=== PATIENT | male | born 1955 | race Caucasian/White ===

== ENCOUNTER 2016-06-27 08:53 | Inpatient (IN) | payer MEDICARE, OTHER ==
[~2016-06-27] VITALS: Ht 175.3 cm; Wt 122.0 kg
[2016-06-27] MEDS ORDERED: DILTIAZEM HCL 25 MG IV ONE (09:08)
[2016-06-27 09:26] LABS: BASOPHILS # (AUTO) 0.3 /CMM (0.0-0.2); BASOPHILS % (AUTO) 2.7 % (0.0-2.0); DIFF TOTAL % 100 %; EOSINOPHILS # (AUTO) 0.7 /CMM (0.0-0.7); EOSINOPHILS % (AUTO) 5.4 % (0.0-6.0); HEMATOCRIT 49 % (39-51); HEMOGLOBIN 16.8 g/dL (13.5-17.5); LYMPHOCYTES # (AUTO) 3.7 /CMM (0.8-4.8); LYMPHOCYTES % (AUTO) 28.4 % (20.0-44.0); MEAN CORPUSCULAR HEMOGLOBIN 30 PG (26.0-33.0); MEAN CORPUSCULAR HGB CONC 35 g/dl (31.0-36.0); MEAN CORPUSCULAR VOLUME 87 fL (80-96); MONOCYTES # (AUTO) 0.8 /CMM (0.1-1.30); MONOCYTES % (AUTO) 6.3 % (2.0-12.0); NEUTROPHILS # (AUTO) 7.4 /CMM (1.8-8.9); NEUTROPHILS % (AUTO) 57.2 % (43.0-81.0); PLATELET COUNT (AUTO) 176 /CMM (150-450); RED BLOOD CELL COUNT(AUTO) 5.58 MIL/uL (4.5-6.0); WHITE BLOOD COUNT (AUTO) 12.9 K/uL (4.3-11.0)
[2016-06-27 09:29] LABS: CALCIUM, SERUM 8.4 mg/dL (8.5-10.1); CREATININE 1.5 mg/dL (0.6-1.3); POTASSIUM 3.3 mmol/L (3.5-5.1)
[2016-06-27] MEDS ORDERED: DILTIAZEM HCL 50 MG IV IV ONE ×2 (09:30)
[2016-06-27 09:34] LABS: ALBUMIN 3.5 g/dL (3.4-5.0); BILIRUBIN,DIRECT 0.1 mg/dL (0.0-0.2); BILIRUBIN,TOTAL 0.4 mg/dL (0.2-1.0); INDIRECT BILIRUBIN 0.3 mg/dL (0.0-1.1); TOTAL PROTEIN, SERUM 7.1 g/dL (6.4-8.2)
[2016-06-27 09:37] LABS: TROPONIN I 0.034 ng/mL (0.00-0.056)
[2016-06-27 09:50] LABS: INR 0.9 (0.87-1.13); PROTHROMBIN TIME 9.4 SECS (9.5-12.7)
[2016-06-27] MEDS ORDERED: CLOP75TA2 PO (10:17)
[2016-06-27] MEDS ORDERED: METO100T3 PO (10:17)
[2016-06-27] MEDS ORDERED: LORA10TA68 PO (10:17)
[2016-06-27] MEDS ORDERED: LOSA50TA21 PO (10:17)
[2016-06-27] MEDS ORDERED: Z GUARD REMEDY 2 OZ OINT TP PRN (10:30)
[2016-06-27] MEDS ORDERED: ZOLPIDEM TARTRATE 5 MG TABLET PO PRN (10:30)
[2016-06-27] MEDS ORDERED: ACETAMINOPHEN 325 MG TABLET PO PRN (10:30)
[2016-06-27] MEDS ORDERED: ONDANSETRON HCL/PF 4 MG/2 ML VIAL IVP PRN (10:30)
[2016-06-27] MEDS ORDERED: MAGNESIUM HYDROXIDE 30 ML UDC PO PRN (10:30)
[2016-06-27] MEDS ORDERED: MAG HYDROX/AL HYDROX/SIMETH 30 ML UDC PO PRN (10:30)
[2016-06-27] MEDS ORDERED: PANTOPRAZOLE 40 MG TABLET.DR PO SCH (10:30)
[2016-06-27] MEDS ORDERED: HYDROCODONE/APAP 5/325MG 1 EACH TABLET PO PRN (10:30)
[2016-06-27 10:35] VITALS: BP 125/81
[2016-06-27 11:25] VITALS: BP 125/81
[2016-06-27 12:00] VITALS: BP 95/68
[2016-06-27] MEDS ORDERED: DILTIAZEM HCL 30 MG TABLET PO SCH (12:00)
[2016-06-27] MEDS: METOPROLOL TARTRATE 50 MG TABLET PO SCH ×2 (12:30→13:18)
[2016-06-27 12:47] VITALS: BP 95/68
[2016-06-27 13:18] VITALS: BP 94/51
[2016-06-27] MEDS ORDERED: POTASSIUM CHLORIDE 20 MEQ TAB.PRT.SR PO ONE (14:30)
[2016-06-28] MEDS ORDERED: LOSARTAN POTASSIUM 50 MG TABLET PO SCH (09:00)
[2016-06-28] MEDS ORDERED: CLOPIDOGREL BISULFATE 75 MG TABLET PO SCH (09:00)
[2016-06-28] MEDS ORDERED: LORATADINE 10 MG TABLET PO SCH (09:00)
== END 2016-06-27 15:40 | disposition left against medical advice (07) | DRG 308 ==
LOC: ER 08:55 → TELE 10:12
PROVIDERS: ADMIT Internal Medicine; ATTEND Internal Medicine
DX: I48.91 Unspecified atrial fibrillation (principal); N17.0 Acute kidney failure with tubular necrosis; D68.59 Other primary thrombophilia; I10 Essential (primary) hypertension; E87.6 Hypokalemia; E66.9 Obesity, unspecified; I25.119 Atherosclerotic heart disease of native coronary artery with unspecified angina pectoris; F60.0 Paranoid personality disorder; Z95.1 Presence of aortocoronary bypass graft
CPT/HCPCS: 36415; 71010-TC; 80048-TC; 80076-TC; 84484-TC; 85025-TC; 85730-TC; A4606; J3490; Z7610

== ENCOUNTER 2022-11-01 19:56 | Emergency (ER) | payer OTHER ==
[~2022-11-01 19:56] MED LIST: CLOP75TA15 PO; LORA10TA68 PO; LOSA50TA39 PO; METO100T14 PO
--- NOTE | 2022-11-01 21:00 | NUR ---
CALLED MULTIPLE TIMES FOR TRIAGE. NO ANSWER
== END 2022-11-01 21:01 | disposition left against medical advice (07) ==
LOC: ER 19:58
DX: Z53.21 Procedure and treatment not carried out due to patient leaving prior to being seen by health care provider (principal)